=== PATIENT | female | born 1955 | race Caucasian/White ===

== ENCOUNTER → 2016-10-31 | Outpatient (CLI) | payer BC ==
[~2016-10-31] MED LIST: ANUCORT HC25 MG; COZAAR50 MG PO; FERROUS GLUCON324 M1 PO; GAVISCON ES TA1 EACH PO; IRON159 M1 PO; NEXIUM20 MG PO; NORVASC10 MG; NORVASC10 MG PO; OMEPRAZOLE40 MG PO; PRILOSEC20 M1 PO; PRILOSEC20 MG PO; PROVENTIL0.09 MG/AC INH; REGLAN10 M1 PO; SINGULAIR10 MG; SINGULAIR10 MG PO; ZOCOR10 MG PO
== END | disposition home or self-care (01) ==
LOC: MAMMO 02:57
DX: N64.4 Mastodynia (principal); Z85.3 Personal history of malignant neoplasm of breast

== ENCOUNTER 2018-03-26 21:41 | Emergency (ER) | payer OTHER ==
[~2018-03-26] VITALS: Ht 162.5 cm; Wt 104.3 kg
== END 2018-03-27 00:40 | disposition home or self-care (01) ==
LOC: ED 21:41
DX: S63.502A Unspecified sprain of left wrist, initial encounter (principal); S20.212A Contusion of left front wall of thorax, initial encounter; W18.09XA Striking against other object with subsequent fall, initial encounter; Y93.89 Activity, other specified; Y92.099 Unspecified place in other non-institutional residence as the place of occurrence of the external cause; Y99.8 Other external cause status